=== PATIENT | female | born 1955 | race Caucasian/White ===

== ENCOUNTER → 2020-10-07 | Outpatient (CLI) | payer MEDICARE, BC ==
[2014-12-18 11:00] VITALS: BP 118/67
[~2020-10-07] MED LIST: ESOM40CA PO; ESTR1TAB PO; LEVO50TA5 PO; LISI10TA16 PO; METF10007 PO; SERT25TA PO
--- NOTE | 2020-10-07 09:35 | KCIC ---
EXAM: DUAL ENERGY X-RAY ABSORPTIOMETRY (DEXA). HISTORY: Postmenopausal screening. FINDINGS: The lowest measured T-score is 2.2 in the lumbar spine, based on a bone mineral density of 1.287 g/cm^2. Refer to the worksheets for full detail. No comparison examinations are available. IMPRESSION: 1. Normal. Bone mineral density yields a T-score of -1.0 or greater. Fracture risk is low. 2. FRAX report: Not calculated. METHODOLOGY: Dual energy x-ray absorptiometry was performed to measure bone mineral density. The foll owing analysis is based on the 2019 Official Positions of the International Society for Clinical Dens itometry: Measurements of the hips and the average of L1-L4 are preferred. When the spine and/or hip cannot be feasibly measured or interpreted, or in the setting of hyperparathyroidism, distal radial bone minera l density may be measured. The lumbar spine T-score is based on the average bone mineral density of L1-L4. In the setting of art ifact or anatomic abnormality, some lumbar levels may be excluded, and the remaining levels used for calculation. A single lumbar level is not used for diagnosis, and if only a single level is available for assessment, another anatomic site will be used to assign a diagnosis. The hip T-score is based on the bone mineral density measurement of the femoral neck or total proxima l femur of either side, whichever is lowest. Bilateral mean values are not used for diagnosis. The forearm T-score is derived from 33% of the distal radius of the nondominant forearm. Electronically signed by: Lacy Gaona MD (10/07/2020 9:32 AM) [id number]
--- NOTE | 2020-10-07 10:00 | KCIC ---
EXAM: Bilateral screening mammogram. HISTORY: 65-year-old female presents for screening mammography. TECHNIQUE: Full-field digital craniocaudal and mediolateral oblique views of both breasts are obtaine d for evaluation. Computer aided detection was applied. COMPARISON: 10/10/2008. BREAST PARENCHYMAL DENSITY: Level B - Scattered fibroglandular densities. FINDINGS: There is nodular asymmetry within the anterior 3:00 position of the right breast. There are additional areas of asymmetry and nodularity which are stable in appearance. There is stable promine nt right greater than left axillary and Tail lymph nodes. There are few benign calcifications. IMPRESSION: BI-RADS Category 0: Incomplete. Additional imaging needed. RECOMMENDATION: Further evaluation with spot compression views and a true lateral view of the right b reast to assess nodularity at the anterior 3:00 position is recommended. Sonographic imaging can also be performed if deemed indicated based on additional mammographic findings. If your mammogram demonstrates that you have dense breast tissue, which could hide abnormalities, and if you have other risk factors for breast cancer that have been identified, you might benefit from s upplemental screening tests that may be suggested by your ordering physician. Dense breast tissue, i n and of itself, is a relatively common condition. This information is not provided to cause undue c oncern, but rather to raise your awareness and to promote discussion with your physician regarding th e presence of other risk factors, in addition to dense breast tissue. A report of your mammography re sults will be sent to you and your physician. You should contact your physician if you have any ques tions or concerns regarding this report. Mammography is a sensitive method for finding small breast cancers, but it does not detect them all a nd is not a substitute for careful clinical examination. A negative mammogram does not negate a clin ically suspicious finding and should not result in delay in biopsying a clinically suspicious abnorma lity. PQRS compliance statement - Patient information was entered into a reminder system with a target due date for the next mammogram. "Our facility is accredited by the [employer] Mammography [employer]." Electronically signed by: Lacy Gaona MD (10/07/2020 9:57 AM) [id number]
== END ==
LOC: KCIC MAMMO 08:47
PROVIDERS: ATTEND Family Medicine
DX: Z12.31 Encounter for screening mammogram for malignant neoplasm of breast (principal); Z13.820 Encounter for screening for osteoporosis; Z78.0 Asymptomatic menopausal state
CPT/HCPCS: 77067; 77080

== ENCOUNTER → 2020-10-27 | Outpatient (CLI) | payer MEDICARE, BC ==
[2014-12-18 11:00] VITALS: BP 118/67
--- NOTE | 2020-10-27 14:14 | KCIC ---
Right breast diagnostic digital mammograms: Reason for examination: Nodular densities on screening. Comparison is made to previous study dated 10/07/2020. Coned compression views were obtained in CC and oblique projections and a true lateral view of the ri ght breast was obtained. With these additional views, small nodular densities persist in the retroareolar 6:00 position anteri mariana in the right breast and at the 4:00 position anteriorly in the right breast. Further evaluation with ultrasound follow. IMPRESSION: Nodular densities persist in the retroareolar 6:00 position and in the 4:00 position. Ultrasound to [facility]. BI-RADS Category 0: Incomplete: Need additional imaging evaluation. Right breast ultrasound: Ultrasound examination of the right breast and axilla was performed. At the 4:00 position 3 cm from the nipple and corresponding to the area of mammographic concern, ther e is a 7.6 x 5.4 mm hypoechoic circumscribed lesion in parallel orientation which probably represents a small fibroadenoma. In the retroareolar position, there is a 5 mm hypoechoic nodule possibly repre senting a complicated cyst or cystic ductal ectasia. No abnormal vascularity is seen. No other cystic or solid nodules are seen. No abnormal appearing lymph nodes are seen in the axilla. IMPRESSION: Benign-appearing nodules in the 4:00 position and retroareolar position which correspond to the mammo graphic findings. Recommend 6 month follow-up with ultrasound. BI-RADS Category 3: Probably Benign. "Our facility is accredited by the [employer] Mammography [employer]." This patient's information has been entered into a reminder system for the patient to be notified wit h the results of her examination and a target date for the next mammogram. Electronically signed by: Kristie Winston MD (10/27/2020 2:11 PM) [id number]
== END ==
LOC: KCIC MAMMO 12:46
PROVIDERS: ATTEND Family Medicine
DX: N63.41 Unspecified lump in right breast, subareolar (principal); N63.13 Unspecified lump in the right breast, lower outer quadrant; R92.8 Other abnormal and inconclusive findings on diagnostic imaging of breast
CPT/HCPCS: 76641; 77065